=== PATIENT | male | born 1955 | race Caucasian/White ===

== ENCOUNTER 2017-06-17 19:14 | Inpatient (IN) | payer OTHER ==
[~2017-06-17] VITALS: Ht 177.8 cm; Wt 103.9 kg
[~2017-06-17 19:14] MED LIST: ALDACTONE100 MG PO; B12INJ IM; BACTRIM DS TAB1 EACH PO; BENADRYL25 MG PO; CARVEDILOL12.5 MG PO; CEPHALEXIN 500500 M1 PO; COLACE100 MG PO; COREG6.25 MG PO; CORTIZONE 1028 GM TP; DIFLUCAN100 MG PO; DIFLUCAN150 M1 PO; DIFLUCAN200 MG PO; ERYTHROMYCIN250 MG PO; FISH OIL 1,001000 M1 PO; FLINTSTONES T100 MCG PO; GENTAMICIN 0.1%15 G2 TOP; HYDROCODON-ACE1 EAC5 PO; HYDROCODONE-AP1 EAC6 PO; HYDROXYZINE HCL25 M2 PO; IBUPROFEN 800800 M1 PO; JOCK ITCH RELIE14 GM TP; KEFLEX250 MG; KEFLEX500 MG; KEFLEX500 MG PO; KLOR-CON 10 ER10 MEQ PO; KLOR-CON 1010 MEQ PO; LANSOPRAZOLE30 MG PO; LASIX 40 MG TAB40 M2 PO; LOMOTIL TABLET1 EACH PO; MAGNESIUM OXID200 MG PO; MAGOX 400400 MG PO; MEDROL2 MG PO; MICARDIS 80 MG80 MG PO; MICARDIS40 MG PO; NEXIUM 40 MG CA40 M1 PO; NORCO 10-325 T1 EACH PO; NORVASC10 MG PO; NYSTATIN 1100000 U/M PO; NYSTATIN 1100000 U/M SW&SWALLOW; ORALONE5 GM DT; PEPCID20 MG PO; PREVACID 24HR15 MG PO; PREVACID15 MG PO; PREVACID30 MG PO; PRINIVIL20 MG PO; PROTONIX40 MG PO; PSORIASIN21.25 GM TP; REGLAN 10 MG TA10 MG PO; ROBAXIN500 MG PO; SANTYL OINTMENT30 G1 TOP; TAMSULOSIN HCL0.4 MG PO; TRIAMCINOLONE A80 G2; VISTARIL 25 MG25 M1 PO; VITAMINC500 PO; XARELTO10 MG PO
[2017-06-17 19:20] VITALS: BP 193/98
[2017-06-17] MEDS ORDERED: LOMOTIL TABLET1 EACH (19:27)
[2017-06-17 19:41] LABS: HEMATOCRIT 42.6 % (42.0-52.0); HEMOGLOBIN 14.1 gm/dL (14.0-18.0); MCH 28.3 pg (26.0-34.0); MCHC 33.1 g/dL (28.0-37.0); MCV 85.5 fL (80.0-100.0); MPV 8.1 fl. (7.2-11.1); NUCLEATED RBCS 0 /100WBC; PLATELET COUNT* 170 thou/uL (150-400); RBC 4.98 mil/uL (4.50-6.00); RDW-CV 15.3 % (10.5-14.5); WBC 11.6 thou/uL (4.0-11.0)
[2017-06-17 19:48] LABS: CALCIUM 8.7 mg/dL (8.5-10.1); CREATININE 1.2 mg/dL (0.6-1.3); POTASSIUM 3.2 mmol/L (3.5-5.1)
[2017-06-17 19:52] LABS: ALBUMIN 3.2 g/dL (3.4-5.0); TOTAL BILIRUBIN 0.6 mg/dL (<0.1-1.0); TOTAL PROTEIN 6.2 g/dL (6.4-8.2)
[2017-06-17 19:53] LABS: URINE BILIRUBIN NEGATIVE (Negative); URINE BLOOD 1+ (Negative); URINE CLARITY CLEAR; URINE COLOR STRAW; URINE GLUCOSE-RANDOM NEGATIVE (Negative); URINE KETONES NEGATIVE (Negative); URINE LEUKOCYTES-REFLEX NEGATIVE (Negative); URINE NITRITE-REFLEX NEGATIVE (Negative); URINE PROTEIN NEGATIVE (Negative); URINE UROBILINOGEN 0.2 E.U./dl (0.2-1.0)
[2017-06-17 20:07] LABS: SQUAMOUS 0-3 Few /LPF (0-3); URINE WBC-REFLEX None Seen /HPF (0-5)
[2017-06-17 20:11] LABS: BACTERIA-REFLEX None Seen /HPF (None Seen); MUCUS 4-6 Moderate strn/LPF (None Seen); URINE RBC 0-2 Rare /HPF (0-2)
[2017-06-17 20:13] LABS: CRYSTALS None Seen /LPF (None Seen)
[2017-06-17 20:16] LABS: ABSOLUTE LYMPHOCYTES 0.6 thou/uL (0.8-5.3); ABSOLUTE MONOCYTES 0.8 thou/uL (0.0-1.2); ABSOLUTE NEUTROPHILS 10.2 thou/uL (1.6-8.1); PLATELET ESTIMATE ADEQUATE
[2017-06-17 20:17] LABS: MACROCYTES 1+; POLYCHROMASIA Occasional
[2017-06-18 00:33] VITALS: BP 188/66
[2017-06-18 07:49] VITALS: BP 132/68
--- NOTE | 2017-06-18 09:58 | EKG ---
[place] [address] ELECTROCARDIOGRAM REPORT Name: LAURAELVIS HIGGINS Room: [address] ADM IN M.R.#: [id number] Admission: 06/17/17 Attend Phys: Mansoor Batista MD Discharge: Date of : 51 Report #: [id number] THIS REPORT FOR: //name// [facility] ED Test Date: 2017-06-17 Test Time: 22:22:03 Pat Name: ELVIS SANCHEZ Department: Room: [address] Gender: M Garden Labourer: ALEKS Hernandez : 1955 Requested By: Paula Jain Order Number: [id number] Reading MD: Guerrero Granados Measurements Intervals [place] Rate: 63 P: 46 RI: 140 QRS: -70 QRSD: 160 T: -30 QT: 511 QTc: 524 Interpretive Statements Sinus arrhythmia Ventricular premature complex Probable left atrial enlargement RBBB and LAFB Left ventricular hypertrophy Abnrm T, consider ischemia, anterolateral lds Compared to ECG 09/24/2013 16:45:00 Ventricular premature complex(es) now present Electronically Signed On 06-18-2017 9:58:38 CDT by Guerrero Granados [email or web address] <ELECTRONICALLY SIGNED> By: Guerrero Granados MD, FACC 06/18/17 0958 21 21 Guerrero Granados MD, FAC /EPI
[2017-06-18 10:08] LABS: ABSOLUTE LYMPHOCYTES 0.5 thou/uL (0.8-5.3); ABSOLUTE NEUTROPHILS 10.8 thou/uL (1.6-8.1); BASOPHILS 0.3 %; HEMATOCRIT 36.8 % (42.0-52.0); HEMOGLOBIN 12.2 gm/dL (14.0-18.0); LYMPHOCYTES 4.4 %; MCH 28.4 pg (26.0-34.0); MCHC 33.3 g/dL (28.0-37.0); MCV 85.2 fL (80.0-100.0); MONOCYTES 7.7 %; MPV 8.3 fl. (7.2-11.1); NUCLEATED RBCS 0 /100WBC; PLATELET COUNT* 147 thou/uL (150-400); POLYS 87.6 %; RBC 4.31 mil/uL (4.50-6.00); RDW-CV 15.4 % (10.5-14.5); WBC 12.4 thou/uL (4.0-11.0)
[2017-06-18 10:16] LABS: ALBUMIN 2.5 g/dL (3.4-5.0); CREATININE 0.9 mg/dL (0.6-1.3); POTASSIUM 3.6 mmol/L (3.5-5.1); TOTAL BILIRUBIN 0.6 mg/dL (<0.1-1.0); TOTAL PROTEIN 4.9 g/dL (6.4-8.2)
[2017-06-18 16:00] VITALS: BP 129/67
[2017-06-18 20:00] VITALS: BP 142/65
[2017-06-18 23:44] VITALS: BP 129/69
[2017-06-19 04:21] VITALS: BP 135/75
[2017-06-19 04:41] LABS: ABSOLUTE MONOCYTES 0.8 thou/uL (0.0-1.2); ABSOLUTE NEUTROPHILS 8.6 thou/uL (1.6-8.1); BASOPHILS 0.1 %; EOSINOPHILS 0.4 %; HEMATOCRIT 37.3 % (42.0-52.0); HEMOGLOBIN 12.6 gm/dL (14.0-18.0); MCH 28.9 pg (26.0-34.0); MCHC 33.9 g/dL (28.0-37.0); MCV 85.3 fL (80.0-100.0); MONOCYTES 7.2 %; NUCLEATED RBCS 0 /100WBC; PLATELET COUNT* 115 thou/uL (150-400); POLYS 82.3 %; RBC 4.37 mil/uL (4.50-6.00); RDW-CV 15.4 % (10.5-14.5); WBC 10.5 thou/uL (4.0-11.0)
[2017-06-19 04:48] LABS: CALCIUM 7.7 mg/dL (8.5-10.1); CREATININE 0.9 mg/dL (0.6-1.3); MAGNESIUM 2.1 mg/dL (1.8-2.4); PHOSPHORUS* 3.3 mg/dL (2.5-4.9); POTASSIUM 3.5 mmol/L (3.5-5.1)
[2017-06-19 07:47] VITALS: BP 144/69
--- NOTE | 2017-06-19 13:21 | S ---
[place] [address] SURGICAL PATH RPT PROCEDURE Name: ELVIS WASHINGTON Room: [address] IN [facility].#: [id number] Admission: 06/17/17 Date of : 51 Discharge: Report #: [id number] Path Case #: [id number] PATHOLOGY REPORT COLLECTION DATE: 06/18/2017 RECEIVED DATE: 06/18/2017 SUBMITTING PHYS: Dr. Deann Haskins OTHER PHYS: Dr. Mansoor Rhoades SPECIMEN(S) RECEIVED: A.Hernia sac * * * * * * * * * * * * FINAL DIAGNOSIS: Hernia sac: - Benign, mesothelial-lined, fibromembranous/fibrofatty tissue with fibrosis and mild chronic inflammation. (DESIREE:emerald; 06/19/2017) PATHOLOGIST: Camron Schulte M.D. REPORT ELECTRONICALLY SIGNED BY: Camron Schulte M.D. DATE/TIME: 06/19/2017 13:20 * * * * * * * * * * * * GROSS PATHOLOGY: Received in formalin labeled "Elvis Washington hernia sac," are multiple segments of of fibroadipose tissue measuring 14.4 x 9.3 x 3.9 cm in aggregate. No nodules or lesions are identified. Authorization Manager tissue is submitted in cassettes A1-A2. (SDY; 06/18/2017) CLINICAL HISTORY: Incarcerated peristomal hernia INITIAL CPT CODE(S): A; 60988 Professional services performed by [facility] at [facility], [address] [place] [address], [place] [address]. Technical services performed by [facility] at [address] [place] [address], [address], [place], [place] [address]. [facility] [address] [place] [address] SURGICAL PATH RPT PROCEDURE Name: ELVIS WASHINGTON Room: [address] IN ..#: [id number] Admission: 06/17/17 Date of : 51 Discharge: Report #: [id number] Path Case #: [id number] [place] [address] PHONE: [phone] DIRECTOR: Kennedy Clifton M.D. * * * END OF REPORT * * *
[2017-06-19 15:44] VITALS: BP 148/69
[2017-06-19 20:30] VITALS: BP 157/75
[2017-06-19 23:46] VITALS: BP 147/75
[2017-06-20 03:30] VITALS: BP 155/88
[2017-06-20 04:39] LABS: HEMATOCRIT 36.9 % (42.0-52.0); HEMOGLOBIN 12.3 gm/dL (14.0-18.0); MCH 28.7 pg (26.0-34.0); MCHC 33.4 g/dL (28.0-37.0); MCV 85.8 fL (80.0-100.0); MPV 8.1 fl. (7.2-11.1); RBC 4.3 mil/uL (4.50-6.00); RDW-CV 15.7 % (10.5-14.5); WBC 12.2 thou/uL (4.0-11.0)
[2017-06-20 04:54] LABS: CALCIUM 7.9 mg/dL (8.5-10.1); CREATININE 0.8 mg/dL (0.6-1.3); MAGNESIUM 2.1 mg/dL (1.8-2.4); PHOSPHORUS* 3.1 mg/dL (2.5-4.9); POTASSIUM 3.3 mmol/L (3.5-5.1)
[2017-06-20 08:04] VITALS: BP 158/78
[2017-06-20 12:33] VITALS: BP 158/78
--- NOTE | 2017-06-20 15:39 | OP ---
[address] [address] OPERATIVE REPORT Name: LAURAELVIS HIGGINS Room: [address] IN .R.#: [id number] Admission: 06/17/17 Attend Phys: Mansoor Batista MD Discharge: Date of : 51 Report #: [id number] THIS REPORT FOR: //name// CC: Bharat Batista Primary Care Provider DATE OF SERVICE: 06/18/2017 PREOPERATIVE DIAGNOSIS: Incarcerated parastomal hernia with entrapped and obstructed stomach. POSTOPERATIVE DIAGNOSIS: Incarcerated parastomal hernia with entrapped and obstructed stomach. PROCEDURE: Open repair of parastomal hernia -- primary repair. SURGEON: Deann Haskins MD EXTRA HAND: Len Herman DO ESTIMATED BLOOD LOSS: 50 mL DRAINS: 19 NADER. SPECIMENS: Hernia sac. COMPLICATIONS: None. FINDINGS: Noted preoperatively to have relative blood loss of midline abdominal hernia. The patient is taking for relief of emergent issue potentially with plan for future abdominal wall reconstruction. Biologic mesh not available at this institution. DESCRIPTION OF PROCEDURE: Full informed consent obtained preoperatively including full discussion of all risks, benefits, alternatives. With questions answered, the patient understood risk of bleeding, infection, reoperation, injury to underlying bowel, change in the parastomal hernia appliance, recurrence of hernia, chronic pain, catastrophic complications up to including cardiopulmonary failure and . He understood and wished to proceed. He was taken to the operating room, we prepped and draped in standard sterile fashion. Timeout was performed and all in agreement. We began with oblique incision superior to his stoma well at the side of where his ostomy appliance would attach. We dissected down through subcutaneous tissue and fat, came upon the hernia sac, this was opened sharply. Of note, stomach was noted to be obstructed and within this. There was a significant [place] [address] OPERATIVE REPORT Name: ELVIS SANCHEZ Room: [address] IN [facility].#: [id number] Admission: 06/17/17 Attend Phys: Mansoor Batista MD Discharge: Date of : 51 Report #: [id number] Omentum was taken down from this. This allowed reduction of the omentum and then the stomach and turned and the stomach was able to be reduced. The greater curvature was mobilized with LigaSure device. Stomach was well protected. This was away and reduced successfully. Stomach appeared viable. There was significant amount of transverse colon within the hernia as well. Hernia sac was reduced from this using mostly cautery. I inspected the colon prior to reduction carefully, I saw no evidence of any injuries. It was reduced back into the abdomen. I palpated the underside of the fascia. I used interrupted stitches of 0 PDS in jujhka-[id number]-[id number] fashion. I was able to close the hernia sac given no ability of biologic mesh. I did not choose to proceed with mesh placement given his likely future need for a complex abdominal wall reconstruction or potentially a stoma reversal. Given this, I closed this, I irrigated copiously. There was no evidence of any bleeding. The fascia was snugged around the colostomy, but not compressing. I placed a 19 drain in this space, it was anchored with 2-0 nylon. A 3-0 Vicryl was used to close deep tissue as well as the dermal tissue and mustapha used to close the skin. Sponge, needle, instrument counts were correct at the end of the case. The patient tolerated it well. There was no contamination of the wound throughout the case. <ELECTRONICALLY SIGNED> By: Deann Haskins MD 06/20/17 1539 0248 [id number] Haskins MD /nt
[2017-06-20 15:59] VITALS: BP 154/93
[2017-06-20 19:30] VITALS: BP 152/71
[2017-06-21 00:02] VITALS: BP 135/85
[2017-06-21 04:07] VITALS: BP 137/84
[2017-06-21 04:20] LABS: ABSOLUTE EOSINOPHILS 0.3 thou/uL (0.0-0.7); ABSOLUTE LYMPHOCYTES 1.4 thou/uL (0.8-5.3); ABSOLUTE MONOCYTES 0.7 thou/uL (0.0-1.2); ABSOLUTE NEUTROPHILS 7.3 thou/uL (1.6-8.1); BASOPHILS 0.3 %; EOSINOPHILS 2.7 %; HEMOGLOBIN 11.9 gm/dL (14.0-18.0); LYMPHOCYTES 14.2 %; MCH 28.9 pg (26.0-34.0); MCV 84.9 fL (80.0-100.0); MONOCYTES 7.3 %; MPV 8.2 fl. (7.2-11.1); NUCLEATED RBCS 0 /100WBC; PLATELET COUNT* 126 thou/uL (150-400); POLYS 75.5 %; RBC 4.12 mil/uL (4.50-6.00); RDW-CV 15.2 % (10.5-14.5); WBC 9.6 thou/uL (4.0-11.0)
[2017-06-21 04:47] LABS: CALCIUM 7.9 mg/dL (8.5-10.1); CREATININE 0.7 mg/dL (0.6-1.3); MAGNESIUM 2.1 mg/dL (1.8-2.4); PHOSPHORUS* 2.5 mg/dL (2.5-4.9); POTASSIUM 3.7 mmol/L (3.5-5.1)
[2017-06-21 08:00] VITALS: BP 146/89
[2017-06-21 16:16] VITALS: BP 145/85
[2017-06-21 19:55] VITALS: BP 132/82
[2017-06-22] VITALS (7 sets, daily range): BP systolic 123–158; BP diastolic 78–84
[2017-06-22 03:56] LABS: HEMATOCRIT 33.7 % (42.0-52.0); HEMOGLOBIN 11.3 gm/dL (14.0-18.0); MCH 28.7 pg (26.0-34.0); MCHC 33.6 g/dL (28.0-37.0); MCV 85.3 fL (80.0-100.0); MPV 8.2 fl. (7.2-11.1); RBC 3.95 mil/uL (4.50-6.00); RDW-CV 15.3 % (10.5-14.5); WBC 8.2 thou/uL (4.0-11.0)
[2017-06-22 04:12] LABS: CALCIUM 7.9 mg/dL (8.5-10.1); CREATININE 0.7 mg/dL (0.6-1.3); PHOSPHORUS* 2.7 mg/dL (2.5-4.9); POTASSIUM 3.7 mmol/L (3.5-5.1)
[2017-06-22] MEDS ORDERED: ULTRAM 50MG TAB50 MG PO (15:55)
[2017-06-23] MEDS ORDERED: HYDROCODONE-AP1 EAC6 PO (23:47)
[2017-06-25] MEDS ORDERED: SENNA8.6 MG PO (12:37)
[2017-06-25] MEDS ORDERED: MILK OF MA2400 MG/10 PO (12:37)
== END 2017-06-22 19:11 | disposition home health service (06) | DRG 354 ==
LOC: M.ERS 19:14 → M.ORTHSURG 23:23 → M.TBA-ER 23:23 → M.ORTHSURG 06-18 04:13
PROVIDERS: Emergency Medicine; Internal Medicine; Surgery; ADMIT Internal Medicine
PROC: 0WQF0ZZ Repair Abdominal Wall, Open Approach (ICD-10-PCS; principal; 2017-06-18)
DX: K43.3 Parastomal hernia with obstruction, without gangrene (principal); R65.10 Systemic inflammatory response syndrome (SIRS) of non-infectious origin without acute organ dysfunction; E44.1 Mild protein-calorie malnutrition; E86.0 Dehydration; I10 Essential (primary) hypertension; J45.909 Unspecified asthma, uncomplicated; K21.9 Gastro-esophageal reflux disease without esophagitis; Z86.718 Personal history of other venous thrombosis and embolism; Z86.711 Personal history of pulmonary embolism; Z88.7 Allergy status to serum and vaccine; Z79.899 Other long term (current) drug therapy; Z82.49 Family history of ischemic heart disease and other diseases of the circulatory system; Z68.32 Body mass index [BMI] 32.0-32.9, adult

== ENCOUNTER 2017-07-05 15:11 | Emergency (ER) | payer OTHER ==
[~2017-07-05] VITALS: Ht 177.8 cm; Wt 88.5 kg
[~2017-07-05 15:11] MED LIST changes: +LOMOTIL TABLET1 EACH; +MILK OF MA2400 MG/10 PO; +SENNA8.6 MG PO; +ULTRAM 50MG TAB50 MG PO
[2017-07-05 16:47] VITALS: BP 151/95
== END 2017-07-05 16:48 | disposition home or self-care (01) ==
LOC: M.ERS 15:11
DX: K91.89 Other postprocedural complications and disorders of digestive system (principal); I10 Essential (primary) hypertension; J45.909 Unspecified asthma, uncomplicated; Z86.718 Personal history of other venous thrombosis and embolism; Z86.711 Personal history of pulmonary embolism; Z98.890 Other specified postprocedural states; Z88.7 Allergy status to serum and vaccine; Z90.89 Acquired absence of other organs; Y83.8 Other surgical procedures as the cause of abnormal reaction of the patient, or of later complication, without mention of misadventure at the time of the procedure; Y92.89 Other specified places as the place of occurrence of the external cause

== ENCOUNTER 2018-11-13 09:54 | Emergency (ER) | payer OTHER ==
[~2018-11-13] VITALS: Ht 180.3 cm; Wt 102.5 kg
[2018-11-13] MEDS ORDERED: PROPECIA1 MG PO (10:05)
[2018-11-13] MEDS ORDERED: DIFLUCAN200 MG PO (10:06)
[2018-11-13] MEDS ORDERED: NICARDIPINE HCL20 MG PO (10:07)
[2018-11-13] MEDS ORDERED: DIFLUCAN100 MG PO (10:24)
[2018-11-13 10:28] VITALS: BP 128/82
== END 2018-11-13 10:28 | disposition home or self-care (01) ==
LOC: M.ERS 09:54
DX: B37.0 Candidal stomatitis (principal); I10 Essential (primary) hypertension; K21.9 Gastro-esophageal reflux disease without esophagitis; J45.909 Unspecified asthma, uncomplicated; Z76.0 Encounter for issue of repeat prescription; Z90.89 Acquired absence of other organs; Z86.718 Personal history of other venous thrombosis and embolism; Z98.890 Other specified postprocedural states; Z86.711 Personal history of pulmonary embolism; Z86.018 Personal history of other benign neoplasm; Z93.3 Colostomy status; Z88.7 Allergy status to serum and vaccine

== ENCOUNTER 2021-03-30 14:50 | Inpatient (IN) | payer OTHER ==
[~2021-03-30] VITALS: Ht 180.3 cm; Wt 89.4 kg
[~2021-03-30 14:50] MED LIST changes: +CIPRO250 M2 PO; +CLOTRIMAZOLE-BE15 GM TOP; +FLUCONAZOLE 10100 MG PO; +LANTUS SOL100 UNIT/1 SUBQ; +METFORMIN HCL500 MG PO; +NICARDIPINE HCL20 MG PO; +NORVASC 2.5 MG2.5 MG PO; +PROPECIA1 MG PO; +TRIAMCINOLONE 080 G3 TOP; +XARELTO20 MG PO
[2021-03-30 14:53] VITALS: BP 154/92
[2021-03-30 15:58] LABS: ABSOLUTE BASOPHILS 0.1 thou/uL (0.0-0.2); ABSOLUTE MONOCYTES 0.8 thou/uL (0.0-1.2); ABSOLUTE NEUTROPHILS 5.1 thou/uL (1.6-8.1); EOSINOPHILS 0.4 %; HEMATOCRIT 35.1 % (42.0-52.0); HEMOGLOBIN 11.5 gm/dL (14.0-18.0); LYMPHOCYTES 14.2 %; MCH 28.8 pg (26.0-34.0); MCHC 32.6 g/dL (28.0-37.0); MCV 88.1 fL (80.0-100.0); MONOCYTES 11.3 %; NUCLEATED RBCS 0 /100WBC; PLATELET COUNT* 295 thou/uL (150-400); POLYS 73.1 %; RBC 3.99 mil/uL (4.50-6.00); RDW-CV 16.2 % (10.5-14.5)
[2021-03-30 16:08] LABS: CALCIUM 8.9 mg/dL (8.5-10.1); CREATININE 1.5 mg/dL (0.6-1.3); POTASSIUM 3.7 mmol/L (3.5-5.1)
[2021-03-30 16:09] LABS: INR 1.1; PROTIME 11.4 Seconds (9.20-11.50)
[2021-03-30 16:22] LABS: ALBUMIN 3.3 g/dL (3.4-5.0); CK-MB MASS 1.1 ng/mL (<0.5-3.6); TOTAL BILIRUBIN 0.5 mg/dL (<0.1-1.0); TOTAL PROTEIN 7.1 g/dL (6.4-8.2)
[2021-03-30 17:06] LABS: URINE BILIRUBIN NEGATIVE (Negative); URINE BLOOD NEGATIVE (Negative); URINE CLARITY CLEAR; URINE COLOR YELLOW; URINE GLUCOSE-RANDOM NEGATIVE (Negative); URINE KETONES TRACE (Negative); URINE LEUKOCYTES-REFLEX NEGATIVE (Negative); URINE NITRITE-REFLEX NEGATIVE (Negative); URINE PROTEIN NEGATIVE (Negative); URINE SPECIFIC GRAVITY 1.015 (1.005-1.030); URINE UROBILINOGEN 0.2 E.U./dl (0.2-1.0)
[2021-03-30 23:38] VITALS: BP 145/66
[2021-03-31 03:30] VITALS: BP 178/77
[2021-03-31 04:03] VITALS: BP 165/68
[2021-03-31 08:00] VITALS: BP 135/78
--- NOTE | 2021-03-31 12:11 | EKG ---
[place] [address] ELECTROCARDIOGRAM REPORT Name: LAURAELVIS HIGGINS Room: [place] [address] ADM IN ..#: [id number] Admission: 03/30/21 Attend Phys: Adriane Padilla Discharge: Date of : 51 Date of Service: 03/30/21 1626 Report #: [id number] THIS REPORT FOR: //name// [facility] ED Test Date: 2021-03-30 Test Time: 16:26:01 Pat Name: ELVIS SANCHEZ Department: Room: [facility] Gender: M In Service Education Teacher: JONA : 1955 Requested By: Joe Moreno Order Number: [id number] MD: Daniel Leslie Measurements Intervals [place] Rate: 97 P: NV: QRS: -74 QRSD: 151 T: 64 QT: 384 QTc: 488 Interpretive Statements Sinus rhythm with premature atrial contractions RBBB and LAFB Compared to ECG 06/17/2017 22:22:03 Ventricular premature complex(es) no longer present Left ventricular hypertrophy no longer present Possible ischemia no longer present Electronically Signed On 03-31-2021 12:10:43 TEXTILE COATING MACHINE OPERATOR by Daniel Leslie [email or web address] <ELECTRONICALLY SIGNED> By: Daniel Leslie MD, FACC 03/31/21 1210 1626 1626 Daniel Leslie MD, FAC /EPI
[2021-03-31 18:37] VITALS: BP 162/70
[2021-03-31 23:00] VITALS: BP 133/57
[2021-04-01 03:00] VITALS: BP 138/79
[2021-04-01 09:53] VITALS: BP 154/65
[2021-04-01 14:57] VITALS: BP 141/79
[2021-04-01 19:30] VITALS: BP 157/78
[2021-04-02] VITALS (7 sets, daily range): BP systolic 97–145; BP diastolic 65–86
[2021-04-02 08:10] LABS: ABSOLUTE BASOPHILS 0.1 thou/uL (0.0-0.2); ABSOLUTE EOSINOPHILS 0.2 thou/uL (0.0-0.7); ABSOLUTE LYMPHOCYTES 1.2 thou/uL (0.8-5.3); ABSOLUTE MONOCYTES 0.6 thou/uL (0.0-1.2); ABSOLUTE NEUTROPHILS 3.5 thou/uL (1.6-8.1); BASOPHILS 1.4 %; EOSINOPHILS 3.6 %; HEMATOCRIT 33.2 % (42.0-52.0); HEMOGLOBIN 10.9 gm/dL (14.0-18.0); LYMPHOCYTES 20.9 %; MCH 28.4 pg (26.0-34.0); MCHC 32.9 g/dL (28.0-37.0); MCV 86.4 fL (80.0-100.0); MONOCYTES 11.5 %; MPV 6.9 fl. (7.2-11.1); NUCLEATED RBCS 0 /100WBC; PLATELET COUNT* 263 thou/uL (150-400); POLYS 62.6 %; RBC 3.84 mil/uL (4.50-6.00); RDW-CV 15.5 % (10.5-14.5); WBC 5.6 thou/uL (4.0-11.0)
[2021-04-02 08:13] LABS: CALCIUM 8.1 mg/dL (8.5-10.1); CREATININE 1.4 mg/dL (0.6-1.3); POTASSIUM 3.4 mmol/L (3.5-5.1)
[2021-04-02 08:18] LABS: ALBUMIN 2.4 g/dL (3.4-5.0); TOTAL BILIRUBIN 0.5 mg/dL (<0.1-1.0); TOTAL PROTEIN 5.9 g/dL (6.4-8.2)
[2021-04-02 17:15] LABS: AMP/METHAMP Negative (Negative); BARBITURATES Negative (Negative); BENZODIAZEPINES Negative (Negative); COCAINE Negative (Negative); METHADONE Negative (Negative); OPIATES Negative (Negative); PCP Negative (Negative); THC Negative (Negative)
[2021-04-03] VITALS: BP 120/69
[2021-04-03 04:00] VITALS: BP 106/51
[2021-04-03 05:22] LABS: ABSOLUTE EOSINOPHILS 0.2 thou/uL (0.0-0.7); ABSOLUTE LYMPHOCYTES 1.1 thou/uL (0.8-5.3); ABSOLUTE MONOCYTES 0.6 thou/uL (0.0-1.2); ABSOLUTE NEUTROPHILS 3.1 thou/uL (1.6-8.1); BASOPHILS 0.7 %; EOSINOPHILS 4.8 %; HEMATOCRIT 30.5 % (42.0-52.0); MCH 28.8 pg (26.0-34.0); MCHC 32.6 g/dL (28.0-37.0); MCV 88.4 fL (80.0-100.0); MONOCYTES 12.6 %; MPV 7.2 fl. (7.2-11.1); NUCLEATED RBCS 0 /100WBC; PLATELET COUNT* 236 thou/uL (150-400); POLYS 59.9 %; RBC 3.46 mil/uL (4.50-6.00); RDW-CV 15.5 % (10.5-14.5); WBC 5.1 thou/uL (4.0-11.0)
[2021-04-03 05:36] LABS: ALBUMIN 2.2 g/dL (3.4-5.0); CALCIUM 7.7 mg/dL (8.5-10.1); CREATININE 1.1 mg/dL (0.6-1.3); POTASSIUM 3.2 mmol/L (3.5-5.1); TOTAL BILIRUBIN 0.4 mg/dL (<0.1-1.0); TOTAL PROTEIN 5.3 g/dL (6.4-8.2)
[2021-04-03 08:00] VITALS: BP 135/78
[2021-04-03] MEDS ORDERED: DOXYCYCLINE 10100 MG PO (11:37)
[2021-04-03] MEDS ORDERED: CIPRO500 M1 PO (11:37)
[2021-04-03 12:00] VITALS: BP 134/81
[2021-04-03 12:39] VITALS: BP 135/78
--- NOTE | 2021-04-03 16:27 | EKG ---
[place] [address] ELECTROCARDIOGRAM REPORT Name: LAURAELVIS HIGGINS Room: [address] ADM IN .R.#: [id number] Admission: 03/30/21 Attend Phys: Adriane Padilla Discharge: Date of : 51 Date of Service: 04/03/21 1438 Report #: [id number] THIS REPORT FOR: //name// [facility] Test Date: 2021-04-03 Test Time: 14:38:39 Pat Name: ELVIS SANCHEZ Department: Room: [address] Gender: M Arts Manager: : 1955 Requested By: Bright Lau Order Number: [id number] Haleigh MD: Daniel Leslie Measurements Intervals [place] Rate: 80 P: 39 MN: 141 QRS: -69 QRSD: 151 T: -4 QT: 430 QTc: 497 Interpretive Statements Sinus rhythm RBBB and LAFB Compared to ECG 03/30/2021 16:26:01 Atrial premature complex(es) no longer present Electronically Signed On 04-03-2021 16:26:50 ELECTRIC RAZOR ASSEMBLER by Daniel Leslie [email or web address] <ELECTRONICALLY SIGNED> By: Daniel Leslie MD, FAC 04/03/21 1626 1438 1438 Daniel Leslie MD, [facility] /EPI
== END 2021-04-03 17:33 | disposition home or self-care (01) | DRG 602 ==
LOC: M.ERS 14:50 → M.TBA-ER 17:16 → M.2W 04-02 20:49
PROVIDERS: Emergency Medicine; Internal Medicine; Nurse Practitioner Family; ADMIT Internal Medicine; ATTEND Internal Medicine
DX: L03.116 Cellulitis of left lower limb (principal); N17.0 Acute kidney failure with tubular necrosis; R65.11 Systemic inflammatory response syndrome (SIRS) of non-infectious origin with acute organ dysfunction; G92.8 Other toxic encephalopathy; L03.115 Cellulitis of right lower limb; I10 Essential (primary) hypertension; K21.9 Gastro-esophageal reflux disease without esophagitis; F32.9 Major depressive disorder, single episode, unspecified; F41.9 Anxiety disorder, unspecified; E11.51 Type 2 diabetes mellitus with diabetic peripheral angiopathy without gangrene; E86.0 Dehydration; I70.209 Unspecified atherosclerosis of native arteries of extremities, unspecified extremity; Z60.2 Problems related to living alone; F29 Unspecified psychosis not due to a substance or known physiological condition; Z20.822 Contact with and (suspected) exposure to COVID-19; Z93.3 Colostomy status; Z86.718 Personal history of other venous thrombosis and embolism; Z86.711 Personal history of pulmonary embolism; Z88.7 Allergy status to serum and vaccine